=== PATIENT | female | born 1990 | race Two or more races ===

== ENCOUNTER 2023-11-14 10:34 | Emergency (ER) | payer OTHER ==
[~2023-11-14] VITALS: Ht 172.7 cm; Wt 92.7 kg
[2023-11-14 10:49] VITALS: BP 129/82; PULSE 66; RESP 18; O2SAT 9
[2023-11-14] MEDS ORDERED: CYCL-837 PO (13:37)
[2023-11-14] MEDS ORDERED: IBUP1TAB5 PO (13:37)
[2023-11-14] MEDS: KETOROLAC TROMETH 30 MG/ML 1ML VIAL IM ONE (13:41)
== END 2023-11-14 14:09 | disposition home or self-care (01) ==
LOC: ER 10:34
DX: M54.2 Cervicalgia (principal); Z79.1 Long term (current) use of non-steroidal anti-inflammatories (NSAID); V89.2XXA Person injured in unspecified motor-vehicle accident, traffic, initial encounter; Y93.89 Activity, other specified; Y92.89 Other specified places as the place of occurrence of the external cause; Y99.8 Other external cause status
CPT/HCPCS: 72040; 96372; 99283; J1885